=== PATIENT | male | born 1965 | race African-American/Black ===

== ENCOUNTER 2022-05-26 12:54 | Emergency (ER) | payer OTHER ==
[~2022-05-26] VITALS: Ht 175.3 cm; Wt 78.0 kg
[2022-05-26 13:04] VITALS: BP 180/75
== END 2022-05-26 18:31 | disposition home or self-care (01) ==
LOC: ER 12:54
DX: Z48.00 Encounter for change or removal of nonsurgical wound dressing (principal); I10 Essential (primary) hypertension
CPT/HCPCS: 99281